=== PATIENT | male | born 1965 | race Caucasian/White ===

== ENCOUNTER 2019-09-27 08:48 | Emergency (ER) | payer OTHER ==
--- NOTE | 2019-09-27 09:07 | ED.PDOC ---
History of Present Illness - General Chief Complaint: ENT Problem Stated Complaint: sore throat,nasal congestion Time Seen by Provider: 09/27/19 09:03 Additional Information: Patient with chief complaint of sore throat 4 days. Patient indicates his throat is scratchy, 6/10 in discomfort. Patient indicates he is eating well and able to swallow without difficulty. Patient denies fever, chills, cough, earache, or any other symptoms. Patient is otherwise healthy. Patient indicates he is here for a strep test. - History of Present Illness Allergies/Adverse Reactions: Allergies NO KNOWN ALLERGY Allergy (Verified 09/27/19 09:05) Review of Systems - Review of Systems Constitutional: States: no symptoms reported. Denies: chills, fever EENTM: States: see HPI. Denies: ear pain, nose congestion, throat swelling, mouth pain Respiratory: States: no symptoms reported. Denies: cough Cardiology: States: no symptoms reported. Denies: chest pain Gastrointestinal/Abdominal: States: no symptoms reported. Denies: abdominal pain Genitourinary: States: no symptoms reported Musculoskeletal: States: no symptoms reported Skin: States: no symptoms reported Neurological: States: no symptoms reported All other Systems: Reviewed and Negative Past Medical History (General) - Patient Medical History Hx Stroke: No Hx Congestive Heart Failure: No Hx Diabetes: No Hx Cancer: Yes - Skin Surgical History: noncontributory - Vaccination History Hx Influenza Vaccination: Yes Hx Pneumococcal Vaccination: No - Social History Hx Tobacco Use: No Family Medical History - Family History Father Family History: Unknown Living Status: Unknown Physical Exam - Physical Exam General Appearance: Comfortable, No apparent distress Eye Exam: bilateral normal Nasal Exam: normal inspection Throat Exam: normal mouth inspection, pharynx normal Neck: non-tender, full range of motion, supple Cardiovascular/Respiratory: regular rate, rhythm, no M/R/G 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 Clinically patient with viral URI/pharyngitis. Patient to take OTC Tylenol and decongestants and follow-up with his PCP as needed. Vital signs stable, patient NAD and looks clinically well and is safe for discharge with outpatient follow- up. Follow-up instructions, discharge instructions and return to ED precautions discussed with patient, Patient voices understanding and willingness to comply with instructions. All laboratory results have been discussed with the patient, and all questions answered. Patient happy with plan. - Results/Orders Results/Orders: 09/27/19 09:10 STREP A SCREEN CULTURE Stat Laboratory Results - last 24 hr 09/27/19 09:10 Group A Strep Rapid Negative Departure - Departure Clinical Impression: Viral pharyngitis Time of Disposition: 09:36 Disposition: Discharge to Home or Self Care Condition: Good Departure Forms: ED Discharge - Pt. Copy, Patient Portal Self Enrollment Instructions: DI for Ear Pain-Adult, Sore Throat, Adult (DC), Viral Pharyngitis (DC)
[2019-09-27 09:11] VITALS: TEMP 97.3; O2SAT 99
[2019-09-27 09:47] VITALS: BP 126/73
== END 2019-09-27 09:47 | disposition home or self-care (01) ==
LOC: ER 08:48
DX: J02.9 Acute pharyngitis, unspecified (principal); Z85.828 Personal history of other malignant neoplasm of skin